=== PATIENT | male | born 1995 | race Hispanic/Latino ===

== ENCOUNTER 2020-01-07 05:05 | Inpatient (IN) | payer BC, OTHER ==
[~2020-01-07] VITALS: Ht 185.4 cm; Wt 121.3 kg
[2020-01-07] VITALS (42 sets, daily range): BP systolic 119–151; BP diastolic 66–89
[2020-01-07] MEDS ORDERED: LIDOCAINE HCL 2% JELLY 5 ML ONE (05:35)
[2020-01-07 05:38] LABS: BASOPHILS % (AUTO) 0.4 % (0.0-5.0); EOSINOPHILS % (AUTO) 0.2 % (0.0-8.0); HEMATOCRIT 43.4 % (42-54); LYMPHOCYTES % (AUTO) 7.7 % (21.0-51.0); MEAN CORPUSCULAR HEMOGLOBIN 29.7 pg (27.0-33.0); MEAN CORPUSCULAR HGB CONC 33.6 g/dL (32.0-36.0); MEAN CORPUSCULAR VOLUME 88.2 fL (79-99); PLATELET COUNT (AUTO) 208 K/uL (130-400); RED BLOOD CELL COUNT(AUTO) 4.92 MIL/uL (4.50-6.20); RED CELL DISTRIBUTION WIDTH 11.9 % (11.0-15.5); WHITE BLOOD COUNT (AUTO) 17.9 K/uL (4.8-10.8)
[2020-01-07 05:39] LABS: APPEARANCE,URINE Clear (CLEAR); BILIRUBIN,URINE Negative (NEGATIVE); COLOR,URINE Yellow (YELLOW); GLUCOSE, URINE (UA) >=1000 mg/dL (NEGATIVE); KETONES,URINE >=80 mg/dL (NEGATIVE); LEUKOCYTE ESTERASE ,URINE Trace (NEGATIVE); NITRATE,URINE Negative (NEGATIVE); OCCULT BLOOD,URINE Trace (NEGATIVE); PROTEIN,URINE Trace mg/dL (NEGATIVE)
[2020-01-07 05:54] LABS: BACTERIA,URINE None Seen /HPF (None Seen); MUCUS,URINE Few LPF (None Seen); SQUAMOUS EPITHELIAL CELL,UR Rare /HPF (0-2); WBC,URINE 0-1 /HPF (0-1)
[2020-01-07 05:57] LABS: INR 1.01 (0.85-1.15); PARTIAL THROMBOPLASTIN TIME 30.8 SEC (26.3-35.5); PROTHROMBIN TIME 10.9 SEC (9.6-11.6)
[2020-01-07] MEDS ORDERED: ZOSYN 3.375GM+NS 50ML 50 ML IV ONE (05:57)
[2020-01-07] MEDS ORDERED: ACETAMINOPHEN EXTRA STRENGTH 500 MG TABLET ONE (05:58)
[2020-01-07 06:01] LABS: BILIRUBIN,TOTAL 0.6 mg/dL (0.2-1.0); POTASSIUM 3.9 mmol/L (3.5-5.1); TOTAL PROTEIN, SERUM 7.8 g/dL (6.0-8.3)
[2020-01-07] MEDS ORDERED: IOHEXOL-350 75 ML VIAL IV ONE (06:18)
[2020-01-07 07:00] LABS: CREATINE KINASE, TOTAL 24 U/L (21-232); MYOGLOBIN 17 ng/mL (10-92); TROPONIN I < 0.04 ng/mL (0.00-0.06)
[2020-01-07] MEDS: LACTATED RINGERS 1000ML 1,000 ML IV SCH ×3 (07:00→20:20)
[2020-01-07] MEDS ORDERED: ZOSYN 3.375GM+NS 50ML 50 ML IV SCH (07:00)
[2020-01-07] MEDS ORDERED: VANCOMYCIN PROTOCOL PER PHARMACY IV SCH (07:00)
[2020-01-07] MEDS ORDERED: ACETAMINOPHEN 325 MG TAB PO PRN (07:00)
[2020-01-07] MEDS ORDERED: ONDANSETRON HCL 4 MG/2 ML VIAL IVP PRN (07:00)
[2020-01-07 07:11] LABS: ABG OXYGEN SATURATION 71.5 % (95.0-99.0); BASE EXCESS,VENOUS BLOOD GAS -5.9 (-2.0-3.0); HCO3,VENOUS BLOOD GAS 18.3 (21.0-28.0); PCO2,VENOUS BLOOD GAS 33 (35-48); PH,VENOUS BLOOD GAS 7.366 (7.350-7.450)
[2020-01-07] MEDS ORDERED: ROCURONIUM 10MG/1ML SYR 10 MG/ML ML ONE (08:06)
[2020-01-07] MEDS ORDERED: SUCCINYLCHOLINE CHLORIDE 20 MG/ML 10 ML VIAL ONE (08:06)
[2020-01-07] MEDS ORDERED: PROPOFOL 10 MG/ML 20ML VIAL IV ONE (08:06)
[2020-01-07] MEDS ORDERED: FENTANYL CITRATE PF 50 MCG/1 ML 2ML VIAL ONE ×4 (08:06→09:52)
[2020-01-07] MEDS ORDERED: LIDOCAINE PF 2% 5ML ABBOJECT ONE (08:06)
[2020-01-07] MEDS ORDERED: MIDAZOLAM HCL 1 MG/ML 2ML VIAL ONE (08:06)
[2020-01-07] MEDS ORDERED: ONDANSETRON HCL 4 MG/2 ML VIAL ONE (08:14)
[2020-01-07] MEDS ORDERED: DEXAMETHASONE SOD PHOSPHATE 10MG/ML 1ML VIAL ONE (08:14)
[2020-01-07] MEDS ORDERED: RENAL DOSE IV SCH (08:30)
[2020-01-07] MEDS ORDERED: SODIUM CHLORIDE 0.9% 1000ML 1,000 ML IV ONE (08:50)
[2020-01-07] MEDS: VANCOMYCIN 1.5 GM in SODIUM CHLORIDE 0.9% 250 ML IV SCH ×2 (09:00→21:51)
[2020-01-07] MEDS ORDERED: COMPOUND IV REFRIGERATED 1 EACH IVSOLN MISC PRN (09:00)
[2020-01-07] MEDS ORDERED: INSULIN R NPO SSI SQ SCH (12:00)
--- NOTE | 2020-01-07 12:25 | NUR ---
ASSUME CARE OF PATIENT FROM O.R. STAFF.. WOUND VAC TO RT SIDE OF SCROTUM INTACT AND NO LEAKS. PT AWAKE AND ALERT. ROOM AIR O2. STABLE
--- NOTE | 2020-01-07 12:29 | NUR ---
INITIAL SW spoke with patient's mother, Inocencia Peters, [phone]. Another emergency contact is sister, Keysha Peters, [phone]. No home services or DME as per mother. 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 PCP is Dr. Garry Griffith. Pharmacy is [facility] located in [place]. DCP is home. Addendum: 01/07/20 at 1231 by CHERYL POLK SS Amended: Links added.
[2020-01-07] MEDS: ZOSYN 3.375GM+NS 50ML 50 ML IV SCH ×2 (13:11→20:49)
[2020-01-07] MEDS: FLUCONAZOLE 200 MG/NS 100 ML 100 ML IV SCH (13:14)
[2020-01-07] MEDS ORDERED: MACR100 PO (14:06)
[2020-01-07] MEDS ORDERED: IBUP-2733 PO (14:06)
[2020-01-07] MEDS: INSULIN LISPRO 100 UNIT/ML 3ML SQ SCH ×3 (16:56→20:47)
--- NOTE | 2020-01-07 18:26 | NUR ---
DR RIDER ROUNDS MADE AT BEDSIDE
[2020-01-07] MEDS: INSULIN GLARGINE 100 UNITS/ML 10 ML VIAL SQ SCH (20:48)
[2020-01-08] VITALS (22 sets, daily range): BP systolic 113–145; BP diastolic 60–86
[2020-01-08] MEDS: LACTATED RINGERS 1000ML 1,000 ML IV SCH ×2 (01:02→23:00)
[2020-01-08] MEDS: ZOSYN 3.375GM+NS 50ML 50 ML IV SCH ×3 (03:46→21:05)
[2020-01-08 04:28] LABS: BASOPHILS % (AUTO) 0.6 % (0.0-5.0); EOSINOPHILS % (AUTO) 1.1 % (0.0-8.0); HEMATOCRIT 33.9 % (42-54); LYMPHOCYTES % (AUTO) 15.1 % (21.0-51.0); MEAN CORPUSCULAR HEMOGLOBIN 30.4 pg (27.0-33.0); MEAN CORPUSCULAR HGB CONC 33.6 g/dL (32.0-36.0); MEAN CORPUSCULAR VOLUME 90.4 fL (79-99); MONOCYTES % (AUTO) 9.5 % (3.0-13.0); PLATELET COUNT (AUTO) 195 K/uL (130-400); RED BLOOD CELL COUNT(AUTO) 3.75 MIL/uL (4.50-6.20); RED CELL DISTRIBUTION WIDTH 11.9 % (11.0-15.5); WHITE BLOOD COUNT (AUTO) 13.3 K/uL (4.8-10.8)
[2020-01-08 04:32] LABS: HEMOGLOBIN A1C 12.1 % (4.0-6.0)
[2020-01-08 05:11] LABS: ALBUMIN 2.1 g/dL (3.5-5.0); CREATININE 0.8 mg/dL (0.5-1.5); MAGNESIUM 1.7 mg/dL (1.80-2.40); PHOSPHORUS 2.1 mg/dL (2.5-4.9); POTASSIUM 3.8 mmol/L (3.5-5.1)
[2020-01-08 05:20] LABS: CRP QUANTITATIVE 333.2 mg/L (0.00-9.0)
[2020-01-08 05:24] LABS: ERYTHROCYTE SEDIMENTATION RATE 89 MM/HR (0-15)
[2020-01-08] MEDS: INSULIN LISPRO 100 UNIT/ML 3ML SQ SCH ×7 (06:35→21:22)
--- NOTE | 2020-01-08 08:00 | NUR ---
PT WAS ASSESSED AND WOUND VAC WAS CHECKED TO MAKE SURE SUCTION WAS APPROPRIATE. PT IN GOOD SPIRITS AND STATES HE FINALLY HAD A GOOD NIGHTS SLEEP. NOT OFFERING ANY COMPLAINS.
[2020-01-08] MEDS: FLUCONAZOLE 200 MG/NS 100 ML 100 ML IV SCH (08:41)
[2020-01-08] MEDS: VANCOMYCIN 1.5 GM in SODIUM CHLORIDE 0.9% 250 ML IV SCH ×2 (09:17→21:04)
--- NOTE | 2020-01-08 15:33 | NUR ---
NUTRITION EDUCATION NICOLE PROVIDED DIABETES NUTRITION EDUCATION. NICOLE PROVIDED REFERENCE MATERIALS AND HANDOUTS. NICOLE DISCUSSED NUTRITION RECOMMENDATIONS. PT VERBALIZED UNDERSTANDING. NICOLE ENCOURAGED PT TO NOTIFY QUESTIONS OR CONCERNS ARISE. Addendum: 01/08/20 at [address] Amended: Links added.
--- NOTE | 2020-01-08 15:52 | NUR ---
RD NOTIFICATION PT WITH NEW ONSET DIABETES. PT TOLERATING 75GM CC DIET ORDER, NO REPORT OF GI DISTRESS, GOOD PO INTAKE (100%). RD PROVIDED DIABETES NUTRITION EDUCATION. PT VERBALIZED UNDERSTANDING. RD TO CONTINUE TO MONITOR. PLEASE NOTIFY ADDITIONAL NUTRITION CONCERNS ARISE. THANK YOU. Addendum: 01/08/20 at [address] Amended: Links added.
[2020-01-08] MEDS: FAMOTIDINE 20MG TAB 20 MG TAB PO SCH (21:05)
[2020-01-08] MEDS: INSULIN GLARGINE 100 UNITS/ML 10 ML VIAL SQ SCH (21:23)
[2020-01-09] VITALS (13 sets, daily range): BP systolic 105–147; BP diastolic 66–95
[2020-01-09 03:52] LABS: BASOPHILS % (AUTO) 0.6 % (0.0-5.0); EOSINOPHILS % (AUTO) 2.3 % (0.0-8.0); HEMATOCRIT 35.6 % (42-54); LYMPHOCYTES % (AUTO) 20.2 % (21.0-51.0); MEAN CORPUSCULAR HEMOGLOBIN 29.7 pg (27.0-33.0); MEAN CORPUSCULAR HGB CONC 33.1 g/dL (32.0-36.0); MEAN CORPUSCULAR VOLUME 89.7 fL (79-99); MONOCYTES % (AUTO) 8.8 % (3.0-13.0); NEUTROPHILS % (AUTO) 58.6 % (40.0-77.0); PLATELET COUNT (AUTO) 223 K/uL (130-400); RED BLOOD CELL COUNT(AUTO) 3.97 MIL/uL (4.50-6.20); RED CELL DISTRIBUTION WIDTH 11.9 % (11.0-15.5); WHITE BLOOD COUNT (AUTO) 9.3 K/uL (4.8-10.8)
[2020-01-09 04:18] LABS: CREATININE 0.8 mg/dL (0.5-1.5); CRP QUANTITATIVE 178.6 mg/L (0.00-9.0); PHOSPHORUS 3.7 mg/dL (2.5-4.9); POTASSIUM 4.9 mmol/L (3.5-5.1)
[2020-01-09] MEDS: LACTATED RINGERS 1000ML 1,000 ML IV SCH ×6 (05:40→23:41)
[2020-01-09] MEDS: ZOSYN 3.375GM+NS 50ML 50 ML IV SCH (05:53)
[2020-01-09] MEDS: INSULIN LISPRO 100 UNIT/ML 3ML SQ SCH ×7 (06:29→20:21)
--- NOTE | 2020-01-09 08:00 | NUR ---
PATIENT ASSESSED AND WOUND VAC ASSESSED AND STILL IN WORKING CONDITION; NO COMPLAINTS FROM PATIENT AT THIS TIME
[2020-01-09] MEDS: FLUCONAZOLE 200 MG/NS 100 ML 100 ML IV SCH (08:03)
[2020-01-09] MEDS: FAMOTIDINE 20MG TAB 20 MG TAB PO SCH ×2 (08:03→20:15)
[2020-01-09] MEDS: ENOXAPARIN SODIUM 40 MG/0.4 ML SYRINGE SQ SCH (08:04)
[2020-01-09] MEDS ORDERED: VANCOMYCIN 2 GM in SODIUM CHLORIDE 0.9% 500ML 500 ML IV SCH (09:30)
--- NOTE | 2020-01-09 11:00 | NUR ---
REPORT GIVEN TO SUSAN DAHL AND PATIENT MOVED TO ROOM 328; PATIENT LEFT RESTING COMFORTABLY IN BED WITH SUSAN DAHL AT BEDSIDE
--- NOTE | 2020-01-09 11:15 | NUR ---
Received patient from Aleena Basilio RN of ICU. AAOx3 , Full code, NKA. Pupils 3 mm, PERRLA. Lung sounds clear to auscultation in all lobes. Apical pulse regular rhythm. 20g to RH and 18g to RAC intact, dressing clean and dry. Pulses strong, regular to radial artery and dorsalis pedis. 16 Fr Mcintyre catheter in place, patent, draining clear, light fausto colored urine. Black foam to rt side scrotum connected to wound vac, on intermittent suction with 100 mL sanguinous drainage to collection device. Patient denies pain at this time. Reports last BM this morning. Patient oriented to surroundings. Confirmed understanding of call light use. Reminded to call when needs assistance. Bed low, locked. Call light within reach.
--- NOTE | 2020-01-09 11:30 | NUR ---
Called Dr. Colin's office, left message with office staff to page Dr. Colin to clarify wound care orders and frequency recommended for wound care. Dr. Colin paged.
[2020-01-09] MEDS: CEFTRIAXONE SODIUM 1 GM IVP SCH (12:01)
--- NOTE | 2020-01-09 13:05 | NUR ---
[facility] patient and obtained consent [facility]. [facility] placed in chart. CM will send referral. Pending eval and acceptance.
--- NOTE | 2020-01-09 13:20 | NUR ---
Per Dr. Colin, consulted Wound care clinic for wound care recommendations on wound vac. Called Wound care to notify of consult. Recommendation is to change wound vac MWF since first placed on 01/05/20. Wound care to come by this afternoon after clinic to assist with wound care.
--- NOTE | 2020-01-09 13:47 | NUR ---
CM Note: [facility] pending approval CM faxed order, clinicals, covid assessment, solara assessment to [facility], confirmation received. Spoke to Pippa mccain/Deshaun, received clinicals faxed, will evaluate pt via phone/clinicals sent. Aware dcp once approved/tomorrow. EMS arranged and faxed for tomorrow, primary nurse to call [facility] once pt ready to DC. MOT semi-filled out, pending to be completed once approved, pending MD and sujatha super to sign, flagged in chart. Primary nurse aware. CM to cont to follow up.
[2020-01-09] MEDS: METRONIDAZOLE 500MG/100ML BAG 100 ML IV SCH ×2 (14:52→21:07)
[2020-01-09] MEDS: MORPHINE SULFATE 4 MG/1ML SYG IVP PRN (15:22)
[2020-01-09] MEDS ORDERED: VANCOMYCIN 1.5 GM in SODIUM CHLORIDE 0.9% 250 ML IV SCH (18:00)
[2020-01-09] MEDS: INSULIN GLARGINE 100 UNITS/ML 10 ML VIAL SQ SCH (20:20)
[2020-01-10 03:00] VITALS: BP 135/75
[2020-01-10 05:00] LABS: BASOPHILS % (AUTO) 0.6 % (0.0-5.0); EOSINOPHILS % (AUTO) 2.1 % (0.0-8.0); HEMATOCRIT 35.9 % (42-54); LYMPHOCYTES % (AUTO) 24.8 % (21.0-51.0); MEAN CORPUSCULAR HGB CONC 33.7 g/dL (32.0-36.0); MEAN CORPUSCULAR VOLUME 88.9 fL (79-99); MONOCYTES % (AUTO) 8.9 % (3.0-13.0); NEUTROPHILS % (AUTO) 50.5 % (40.0-77.0); PLATELET COUNT (AUTO) 250 K/uL (130-400); RED BLOOD CELL COUNT(AUTO) 4.04 MIL/uL (4.50-6.20); RED CELL DISTRIBUTION WIDTH 11.7 % (11.0-15.5); WHITE BLOOD COUNT (AUTO) 8.1 K/uL (4.8-10.8)
[2020-01-10] MEDS: METRONIDAZOLE 500MG/100ML BAG 100 ML IV SCH ×3 (05:07→22:46)
[2020-01-10 05:27] LABS: ALBUMIN 2.3 g/dL (3.5-5.0); CREATININE 0.8 mg/dL (0.5-1.5); CRP QUANTITATIVE 72.6 mg/L (0.00-9.0); POTASSIUM 3.7 mmol/L (3.5-5.1)
[2020-01-10] MEDS: INSULIN LISPRO 100 UNIT/ML 3ML SQ SCH ×7 (06:16→20:14)
[2020-01-10 06:23] LABS: ERYTHROCYTE SEDIMENTATION RATE 54 MM/HR (0-15)
[2020-01-10] MEDS: ENOXAPARIN SODIUM 40 MG/0.4 ML SYRINGE SQ SCH (08:08)
[2020-01-10] MEDS: LACTATED RINGERS 1000ML 1,000 ML IV SCH (08:09)
[2020-01-10] MEDS: FAMOTIDINE 20MG TAB 20 MG TAB PO SCH ×2 (08:09→20:07)
[2020-01-10 08:20] VITALS: BP 139/80
[2020-01-10 11:28] VITALS: BP 124/74
--- NOTE | 2020-01-10 11:30 | NUR ---
D/C KATHI PER DR OLIVEIRA'S ORDERS. PATIENT DTV.
[2020-01-10] MEDS: CEFTRIAXONE SODIUM 1 GM IVP SCH (11:57)
[2020-01-10 16:17] VITALS: BP 128/76
[2020-01-10 19:25] VITALS: BP 144/81
[2020-01-10] MEDS ORDERED: INSULIN GLARGINE 100 UNITS/ML 10 ML VIAL SQ SCH ×2 (21:00)
[2020-01-11] VITALS: BP 134/76
[2020-01-11 03:50] VITALS: BP 128/78
[2020-01-11] MEDS: METRONIDAZOLE 500MG/100ML BAG 100 ML IV SCH ×3 (05:02→21:08)
[2020-01-11] MEDS: INSULIN LISPRO 100 UNIT/ML 3ML SQ SCH ×7 (06:41→20:48)
[2020-01-11 08:52] VITALS: BP 137/85
[2020-01-11] MEDS: FAMOTIDINE 20MG TAB 20 MG TAB PO SCH ×2 (09:33→20:45)
[2020-01-11] MEDS: ENOXAPARIN SODIUM 40 MG/0.4 ML SYRINGE SQ SCH (09:34)
--- NOTE | 2020-01-11 10:00 | NUR ---
cm note faxed clinical update to [facility] as requested by Janelle anna.
[2020-01-11 11:30] VITALS: BP 142/85
[2020-01-11] MEDS: CEFAZOLIN SODIUM 1 GM VIAL IVP SCH ×2 (12:53→20:46)
[2020-01-11] MEDS: MORPHINE SULFATE 4 MG/1ML SYG IVP PRN (14:49)
--- NOTE | 2020-01-11 16:19 | NUR ---
cm note received call from Pippa Bravo from [facility], and states pt has been approved for [facility], spoke to dr Cooney regarding acceptance, states will plan to transfer pt to [facility] tomorrow. updated Pippa Bravo and updated oc [place]
[2020-01-11 16:28] VITALS: BP 141/81
--- NOTE | 2020-01-11 17:00 | NUR ---
WOUND VAC CHANGED TODAY ,PIC TAKEN . PATIENT PREMEDICATED WITH PRN MORPHINE, TOLERATED WELL .
[2020-01-11 19:00] VITALS: BP 142/89
[2020-01-11] MEDS ORDERED: INSULIN GLARGINE 100 UNITS/ML 10 ML VIAL SQ SCH (21:00)
[2020-01-12] VITALS: BP 133/74
[2020-01-12] MEDS: CEFAZOLIN SODIUM 1 GM VIAL IVP SCH ×2 (02:57→12:40)
[2020-01-12 04:00] VITALS: BP 129/75
[2020-01-12] MEDS: METRONIDAZOLE 500MG/100ML BAG 100 ML IV SCH ×2 (05:34→14:26)
[2020-01-12] MEDS: INSULIN LISPRO 100 UNIT/ML 3ML SQ SCH ×6 (06:18→17:31)
[2020-01-12 08:00] VITALS: BP 151/78
[2020-01-12] MEDS: FAMOTIDINE 20MG TAB 20 MG TAB PO SCH (10:56)
[2020-01-12] MEDS: ENOXAPARIN SODIUM 40 MG/0.4 ML SYRINGE SQ SCH (10:58)
[2020-01-12 11:55] VITALS: BP 116/72
[2020-01-12 16:00] VITALS: BP 112/83
--- NOTE | 2020-01-12 17:00 | NUR ---
REPORT GIVEN TO LAVERNE BALDERRAMA AT [facility] REGARDING PT TRANSFER.
--- NOTE | 2020-01-12 17:09 | NUR ---
CALLED EMS REGARDING PT TRANSFER TO [facility].
--- NOTE | 2020-01-12 19:15 | NUR ---
cm note call made to [facility] E[facility] and spoke to nadine dispatcher, states pt is on the list for ems transfer to [facility], but unable to provide ETA, only that pt is next on the list. updated primary nurse and charge nurse barry,
[2020-01-12 19:54] VITALS: BP 124/77
--- NOTE | 2020-01-12 19:55 | NUR ---
EMS HERE TO TRANSFER PATIENT TO [facility]. 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 PATIENT AAOX3, VOICED NO DISCOMFORT AND NO ACUTE DISTRESS NOTED.
== END 2020-01-12 20:00 | DRG 853 ==
LOC: EDH 05:05 → EDHIP 06:50 → 2BH 12:00 → 3DH 01-09 11:59
PROVIDERS: ADMIT Internal Medicine; ATTEND Internal Medicine
PROC: 0VB50ZZ Excision of Scrotum, Open Approach (ICD-10-PCS; principal; 2020-01-07 08:45)
DX: A41.9 Sepsis, unspecified organism (principal); E11.00 Type 2 diabetes mellitus with hyperosmolarity without nonketotic hyperglycemic-hyperosmolar coma (NKHHC); R65.21 Severe sepsis with septic shock; M72.6 Necrotizing fasciitis; E87.1 Hypo-osmolality and hyponatremia; N49.2 Inflammatory disorders of scrotum; N49.3 Fournier gangrene; I16.0 Hypertensive urgency; E66.01 Morbid (severe) obesity due to excess calories; I10 Essential (primary) hypertension; K76.0 Fatty (change of) liver, not elsewhere classified; B95.4 Other streptococcus as the cause of diseases classified elsewhere; B95.61 Methicillin susceptible Staphylococcus aureus infection as the cause of diseases classified elsewhere; N50.89 Other specified disorders of the male genital organs; Z83.3 Family history of diabetes mellitus; Z68.35 Body mass index [BMI] 35.0-35.9, adult
CPT/HCPCS: 36415; 36600; 71045; 74177; 76870; 80048; 80053; 80202; 81001; 82010; 82040; 82550; 82803; 82948; 83036; 83605; 83690; 83735; 83874; 84100; 84145; 84484; 85025; 85610; 85651; 85730; 86140; 87040; 87070; 87076; 87077; 87088; 87186; 87486; 87797; 99291; A4344; G0378; J0330; J0690; J0696; J1100; J1450; J1650; J1815; J2001; J2250; J2270; J2405; J2543; J2704; J3010; J3370; J3490; J7030; J7040; J7050; J7120; Q9967